=== PATIENT | female | born 1995 | race Caucasian/White ===

== ENCOUNTER 2021-01-10 22:03 | Emergency (ER) | payer BC, OTHER, SELFPAY ==
--- NOTE | ~2021-01-10 | CT_ITS ---
EXAMINATION: CT brain wo con DATE: 01/10/2021 23:29 INDICATION: Right-sided numbness. TECHNIQUE: Computed tomography (CT) of the head was performed without intravenous contrast. The mA wa s adjusted according to patient size. Iterative reconstruction technique was employed. The dose-lengt h product was 605.33 mGy-cm. COMPARISON: None FINDINGS: There is no intracranial hemorrhage, acute infarction, or abnormal intracranial mass lesion . The ventricles are normal in size. There is mild mucosal thickening in the paranasal sinuses. The o rbits are normal. A right-sided cochlear implant is noted. IMPRESSION: 1. Normal brain. Reviewed, dictated and finalized at location A. IMPRESSION: 1. Normal brain.
[2021-01-10 22:09] VITALS: BP 132/74; PULSE 97; RESP 18; TEMP 36.9; O2SAT 100
[2021-01-10 23:20] LABS: Basophils Absolute Auto 0.1 K/mm3 (0.0-0.1); Basophils Percent Auto 0.6 % (0.2-1.2); Eosinophils Absolute Auto 0.2 K/mm3 (0-0.3); Eosinophils Percent Auto 1.9 % (0-4.4); Hematocrit 40.3 % (37.0-47.0); Hemoglobin 13.7 g/dL (12.0-15.0); Immature Granulocyte Absolute 0.04 K/mm3 (0.00-0.031); Immature Granulocyte Percent A 0.3 % (0-0.5); Lymphocytes Percent Auto 34.5 % (18.3-44.2); Mean Corpuscular Hemoglobin 31.8 pg (26-34); Mean Corpuscular Volume 93.5 fl (80-100); Mean Platelet Volume 9.2 fl (7.4-10.4); Monocytes Absolute Auto 0.7 K/mm3 (0.1-0.6); Monocytes Percent Auto 5.9 % (2.6-8.5); Neutrophils Absolute Auto 6.6 K/mm3 (1.3-6.7); Neutrophils Percent Auto 56.8 % (45.5-73.1); Platelet Count Result 343 k/mm3 (150-375); Red Blood Count 4.31 M/mm3 (4.2-5.4); Red Cell Distribution Width 11.4 % (11.5-14.5); White Blood Count 11.6 K/mm3 (4.5-10.0)
--- NOTE | 2021-01-10 23:34 | ED.GENADULT ---
HPI - General Adult General Chief complaint: Unspecified Stated complaint: numbness on right side x1 week after covid vaccine Time Seen by Provider: 01/10/21 22:51 History of Present Illness HPI narrative: Patient is 25-year-old female presents the emergency department chief complaint of numbness in the right side of her body. Patient reports that she had her COVID-19 vaccination the end of December and reports that about 1 week ago she started noticing that she was having intermittent numbness that was on the right side of her face right upper extremity and right lower extremity. The patient states it has been intermittent. Patient reports that for about the last week has been pretty well constant she talked her primary care physician who recommended that she come to the emergency department for evaluation. Patient reports no focal motor deficits with this reports that she has history of a cochlear implant is not MRI compatible. Patient denies prior history of stroke. Related Data Allergies Allergy/AdvReac Type Severity Reaction Status Date / Time gentamicin AdvReac Unknown Verified 01/10/21 22:15 Review of Systems Review of Systems: A 10 system review of systems was completed on the patient and is negative except for what is stated in the HPI. Nursing and ancillary documentation was reviewed. Exam Narrative: GENERAL: Well-appearing, well-nourished, and in no acute distress. HEAD: Normocephalic, atraumatic. EYES: PERRLA and EOMI. ENT: Nares clear, no rhinorrhea or epistaxis. Mucous membranes moist. NECK: Supple. CHEST: Clear to auscultation. No respiratory distress. HEART: Regular rate and rhythm. No murmur heard. Normal peripheral pulses. ABDOMEN: Soft, nontender, nondistended, normal active bowel sounds. EXTREMITIES: Normal range of motion. No edema. SKIN: Warm, dry, no rash. NEURO: No focal deficits. Alert and oriented x3. Slight decrease sensation on the right side of the face right upper extremity and right lower extremity. Patient has full range of motion and 5 out of 5 strength in upper and lower extremities. PSYCH: Normal mood and affect. Course Vital Signs Vital signs: Vital Signs Temperature 36.9 C 01/10/21 22:09 Pulse Rate 97 01/10/21 22:09 Respiratory Rate 18 01/10/21 22:09 Blood Pressure 132/74 01/10/21 22:09 Pulse Oximetry 100 01/10/21 22:09 Temperature 36.9 C 01/10/21 22:09 Pulse Rate 97 01/10/21 22:09 Respiratory Rate 18 01/10/21 22:09 Blood Pressure 132/74 01/10/21 22:09 Pulse Oximetry 100 01/10/21 22:09 Medical Decision Making Vital Signs Vital Signs: Vital Signs Temperature 36.9 C 01/10/21 22:09 Pulse Rate 97 01/10/21 22:09 Respiratory Rate 18 01/10/21 22:09 Blood Pressure 132/74 01/10/21 22:09 Pulse Oximetry 100 01/10/21 22:09 Temperature 36.9 C 01/10/21 22:09 Pulse Rate 97 01/10/21 22:09 Respiratory Rate 18 01/10/21 22:09 Blood Pressure 132/74 01/10/21 22:09 Pulse Oximetry 100 01/10/21 22:09 Lab Data Result diagrams: 01/10/21 23:14 01/10/21 23:14 Labs: Lab Results 01/10/21 01/10/21 Range/Units 23:14 23:14 WBC 11.6 H (4.5-10.0) K/mm3 RBC 4.31 (4.2-5.4) M/mm3 Hgb 13.7 (12.0-15.0) g/dL Hct 40.3 (37.0-47.0) % MCV 93.5 (80-100) fl MCH 31.8 (26-34) pg MCHC 34.0 (32-36) g/dl RDW 11.4 L (11.5-14.5) % Plt Count 343 (150-375) k/mm3 MPV 9.2 (7.4-10.4) fl Immature Gran % (Auto) 0.3 (0-0.5) % Neut % (Auto) 56.8 (45.5-73.1) % Lymph % (Auto) 34.5 (18.3-44.2) % [place] % (Auto) 5.9 (2.6-8.5) % Eos % (Auto) 1.9 (0-4.4) % Baso % (Auto) 0.6 (0.2-1.2) % Lymph # (Auto) 4.00 H (0.9-3.2) K/mm3 [place] # (Auto) 0.7 H (0.1-0.6) K/mm3 Eos # (Auto) 0.2 (0-0.3) K/mm3 Baso # (Auto) 0.1 (0.0-0.1) K/mm3 Abs Immat Gran (auto) 0.04 H (0.00-0.031) K/mm3 Absolute Neuts (auto) 6.6 (1.3-6.7) K/mm3 Absolute Nucleated RBC
[2021-01-10 23:36] LABS: Alanine Aminotransferase 18 U/L (4-35); Albumin Level 4.4 g/dL (3.5-5.1); Alkaline Phosphatase 38 U/L (38-126); Anion Gap 8 mmol/L (8-16); Aspartate Amino Transferase 23 U/L (14-36); Bilirubin,Total 0.5 mg/dL (0.2-1.3); Blood Urea Nitrogen 10 mg/dL (7-17); Calcium 9.8 mg/dL (8.4-10.2); Carbon Dioxide 24 mmol/L (22-30); Chloride 105 mmol/L (98-107); Estimated CRCL calculation 84 ml/min; Estimated Glomerular Filt Rate > 60; Glucose 88 mg/dL (65-110); Potassium 4.1 mmol/L (3.4-5.0); Sodium 137 mmol/L (137-145)
[2021-01-11 00:42] VITALS: BP 107/63; PULSE 75; RESP 20; O2SAT 98
== END 2021-01-11 00:45 | disposition home or self-care (01) ==
PROVIDERS: Emergency Provider Emergency Medicine; PCP Family Medicine
DX: R20.2 Paresthesia of skin (principal)
CPT/HCPCS: 36415; 70450; 80053; 85025; 99284